=== PATIENT | male | born 1975 | race Caucasian/White ===

== ENCOUNTER 2021-09-01 08:01 | Inpatient (IN) | payer OTHER ==
[~2021-09-01] VITALS: Ht 170.2 cm; Wt 102.8 kg
[2021-09-01] MEDS ORDERED: VASCEPA1 GM (08:20)
[2021-09-01] MEDS ORDERED: METFORMIN HCL500 MG PO (08:20)
[2021-09-01] MEDS ORDERED: TESTOSTERO200 MG/1 M (08:20)
[2021-09-01] MEDS ORDERED: OZEMPIC1 MG/0.75 SC (08:20)
[2021-09-01] MEDS ORDERED: LISINOPRIL-HCT1 EAC1 (08:20)
[2021-09-01] MEDS ORDERED: PRAVASTATIN SOD80 MG (08:20)
[2021-09-01] MEDS: FAMOTIDINE 20 MG/2 ML VIAL IV NR (08:30)
[2021-09-01] MEDS ORDERED: FAMOTIDINE 20 MG/2 ML VIAL IV ONE (08:37)
[2021-09-01] MEDS ORDERED: ONDANSETRON HCL INJ 2MG/ML 2ML 2 MG/ML VIAL ONE (08:37)
[2021-09-01] MEDS ORDERED: SODIUM CHLORIDE 0.9% 1000ML 1,000 ML ONE ×2 (08:37→10:18)
[2021-09-01] MEDS ORDERED: ONDANSETRON HCL INJ 2MG/ML 2ML 2 MG/ML VIAL IV STA (08:48)
[2021-09-01] MEDS ORDERED: SODIUM CHLORIDE 0.9% 1000ML 1,000 ML IV SCH (09:00)
[2021-09-01] MEDS ORDERED: KETOROLAC TROMETHAMINE 30 MG/ML VIAL ONE (10:44)
[2021-09-01] MEDS ORDERED: ACETAMINOPHEN 325 MG TAB ONE (11:34)
[2021-09-01] MEDS ORDERED: IOPAMIDOL 370 MG/ML 200 ML INFUS..BTL INJ ONE ×2 (11:47→13:19)
[2021-09-01] MEDS ORDERED: SODIUM CHLORIDE 0.9% 50ML 50 ML ONE ×2 (11:47→13:19)
[2021-09-01] MEDS ORDERED: SODIUM CHLORIDE 0.9% 500ML 500 ML ONE (12:07)
[2021-09-01] MEDS ORDERED: SODIUM CHLORIDE 0.9% 100 ML ONE (12:07)
[2021-09-01] MEDS ORDERED: LACTATED RINGER'S 1,000 ML ONE (12:07)
[2021-09-01] MEDS ORDERED: CEFEPIME HCL 1 GM VIAL ONE (12:08)
[2021-09-01] MEDS ORDERED: Vancomycin IV 1 GM VIAL ONE (12:08)
[2021-09-01] MEDS ORDERED: LEVOFLOXACIN 750MG/D5W 150ML 150 ML IV ONE (12:08)
[2021-09-01] MEDS ORDERED: ONDANSETRON HCL INJ 2MG/ML 2ML 2 MG/ML VIAL IV PRN (14:00)
[2021-09-01] MEDS ORDERED: ACETAMINOPHEN 325 MG TAB PO PRN (14:00)
[2021-09-01 15:32] VITALS: BP 108/65
[2021-09-01 16:04] VITALS: BP 108/65
[2021-09-01 16:06] VITALS: BP 108/65
[2021-09-01] MEDS: KCL 20MEQ/.9 SOD CHL 1,000 ML IV SCH ×2 (16:15→23:59)
[2021-09-01] MEDS: FAMOTIDINE 20 MG/2 ML VIAL IV SCH (17:22)
[2021-09-01] MEDS: CEFEPIME 2 GM in SODIUM CHLORIDE 0.9% 100 ML IV SCH ×2 (17:25→22:02)
[2021-09-01] MEDS ORDERED: ASPIRIN 81 MG CHEW TAB PO ONE (18:00)
[2021-09-01 19:18] LABS: CREATINE KINASE MB 1.2 ng/mL (0-5.0)
[2021-09-01 20:00] VITALS: BP 91/69
[2021-09-02] VITALS (7 sets, daily range): BP systolic 94–132; BP diastolic 60–92
[2021-09-02] MEDS: CEFEPIME 2 GM in SODIUM CHLORIDE 0.9% 100 ML IV SCH ×2 (05:13→12:51)
[2021-09-02] MEDS: KCL 20MEQ/.9 SOD CHL 1,000 ML IV SCH ×2 (05:13→14:00)
[2021-09-02 05:45] LABS: BASOPHILS % 0.2 % (0.0-1.0); EOSINOPHILS # (AUTO) 0.1 (0.0-0.4); EOSINOPHILS % 1.7 % (0.0-6.0); HEMATOCRIT 41.9 % (38.2-49.6); HEMOGLOBIN 14.2 g/dL (14.0-18.0); LYMPHOCYTES # (AUTO) 1.1 (1.0-3.2); LYMPHOCYTES % 17.1 % (18.0-39.1); MEAN CORPUSCULAR HEMOGLOBIN 28.9 pg (28-32); MEAN CORPUSCULAR HGB CONC 33.9 g/dL (31-35); MEAN CORPUSCULAR VOLUME 85.3 fL (81-99); MONOCYTES % 15.2 % (4.4-11.3); NEUTROPHILS # (AUTO) 4.2 (2.1-6.9); NEUTROPHILS % 65.3 % (38.7-80.0); PLATELET COUNT 144 x10e3/uL (140-360); RED BLOOD COUNT 4.91 x10e6/uL (4.3-5.7); RED CELL DISTRIBUTION WIDTH 13.4 % (11.7-14.4)
[2021-09-02 06:09] LABS: ALBUMIN 2.9 g/dL (3.5-5.0); ALBUMIN/GLOBULIN RATIO 1.5 (0.8-2.0); ANION GAP 10.5 mmol/L (8-16); CALCIUM 7.4 mg/dL (8.4-10.2); POTASSIUM 4.5 mmol/L (3.5-5.1)
[2021-09-02] MEDS: FAMOTIDINE 20 MG/2 ML VIAL IV SCH ×2 (08:33→14:27)
[2021-09-02] MEDS ORDERED: SIMVASTATIN 40 MG TAB PO SCH (09:00)
[2021-09-02] MEDS ORDERED: LEVOFLOXACIN 750MG/D5W 150ML 150 ML IV SCH (14:00)
== END 2021-09-02 17:21 | disposition home or self-care (01) | DRG 872 ==
LOC: FSED 08:28 → ERHOLD 11:30 → MED/SURG3 13:44
PROVIDERS: ADMIT Internal Medicine; ATTEND Internal Medicine
DX: A41.9 Sepsis, unspecified organism (principal); A09 Infectious gastroenteritis and colitis, unspecified; G47.33 Obstructive sleep apnea (adult) (pediatric); I10 Essential (primary) hypertension; E78.5 Hyperlipidemia, unspecified; Z20.822 Contact with and (suspected) exposure to COVID-19; E86.0 Dehydration; E11.65 Type 2 diabetes mellitus with hyperglycemia; E66.9 Obesity, unspecified; Z68.35 Body mass index [BMI] 35.0-35.9, adult
CPT/HCPCS: 36415; 71046; 74019; 74177; 80048; 80053; 80076; 81003; 82550; 82553; 83605; 84484; 85025; 87040; 93005; 94660; 96374; 96375; 99284; J0692; J1885; J2405; J3370; J7030; J7040; J7050; J7121; Q9967; U0002